=== PATIENT | male | born 1945 | race Caucasian/White ===

== ENCOUNTER → 2017-07-22 | Outpatient (CLI) | payer MEDICARE, OTHER ==
[~2017-07-22] MED LIST: AMMONIUM LACTA280 GM TOP; ASPIRIN EC81 M1; BACITRACIN28.4 G1; COLAZAL750 MG PO; DEPAKOTE ER250 MG PO; LOPRESSOR PO; MELATONIN3 M4 PO; PROZAC PO; SODIUM BICARBO650 MG PO; ZYRTEC10 M2 PO
--- NOTE | ~2017-07-22 | CR240 ---
[facility] A Service of [facility] RADIOLOGY TEXT RESULTS PATIENT: SVEN MONTILLA LOCATION: [facility] : 43 UNIT #: [id number] AGE: [address]: Michael Bales MD SEX: M ORDER DR: [id number] [facility] [address] [place], [place] [address] [id number] O MR#: [id number] Acc #: [id number] NAME: SVEN MONTILLA : 1945 SEX: M STUDY DATE/TIME: 07/22/2017 10:38 UNIT: [facility] ROOM: STUDY DESCRIPTION: CR Swallowing Fx W Cine or Vid Attending Physician: Michael Bales Sr., M.D. Referring Physician: Michael Bales Sr., M.D. Ordering Physician: Michael Bales Sr., M.D. Primary Care Physician: Michael Bales Sr., M.D. MEDICAL IMAGING REPORT This report is preliminary unless electronic signature is present EXAM Video swallowing study HISTORY Dysphasia. PROCEDURE Video swallowing study attempted but patient uncooperative and exam not completed. Total fluoroscopy time 0.1 minutes. IMPRESSION Incomplete exam, patient refused to cooperate. Dictated by... Israel Dove M.D. THIS IS AN ELECTRONICALLY VERIFIED REPORT Israel Dove M.D. at 07/23/2017 3:57 PM TEV/dwayne TD: 07/23/2017 10:30 JOB #: [id number] MEDICAL IMAGING REPORT Page 1 of 1 COPY
== END | disposition home or self-care (01) ==
LOC: CRAD 10:00
DX: R13.10 Dysphagia, unspecified (principal); Z53.8 Procedure and treatment not carried out for other reasons
CPT/HCPCS: 74230

== ENCOUNTER → 2017-07-29 | Outpatient (CLI) | payer MEDICARE, OTHER ==
--- NOTE | ~2017-07-29 | US77 ---
[facility] A Service of [facility] RADIOLOGY TEXT RESULTS PATIENT: SVEN MONTILLA LOCATION: [facility] : 43 UNIT #: [id number] AGE: [address]: Michael Bales MD SEX: M ORDER DR: [id number] [facility] [address] [place], [place] [address] [id number] O MR#: [id number] Acc #: [id number] NAME: SVEN MONTILLA : 1945 SEX: M STUDY DATE/TIME: 07/29/2017 13:46 UNIT: [facility] ROOM: STUDY DESCRIPTION: US Kidney Bilateral Complete Attending Physician: Michael Bales Sr., M.D. Referring Physician: Michael Bales Sr., M.D. Ordering Physician: Michael Bales Sr., M.D. Primary Care Physician: Michael Bales Sr., M.D. MEDICAL IMAGING REPORT This report is preliminary unless electronic signature is present EXAM Renal ultrasound. INDICATION Acute kidney injury. Question of chronic kidney disease. TECHNIQUE Lazo-scale and color Doppler sonographic images were obtained through the kidneys and bladder. FINDINGS This is an extremely technically limited examination. Right kidney appears unremarkable. Certainly I do not see any hydronephrosis. No definite solid or cystic renal masses are seen. Urinary bladder appears normal. Images of the left kidney are essentially nondiagnostic. However, no hydronephrosis is identified. IMPRESSION Extremely technically limited examination. No obvious hydronephrosis is seen. No gross abnormality identified. Dictated by... Denisse Keenan M.D. THIS IS AN ELECTRONICALLY VERIFIED REPORT Denisse Keenan M.D. at 07/30/2017 12:48 PM AFF/tmw TD: 07/29/2017 21:38 JOB #: [id number] [facility] A Service [facility] RADIOLOGY TEXT RESULTS PATIENT: SVEN MONTILLA LOCATION: [facility] : 43 UNIT #: [id number] AGE: [address]: Michael Bales MD SEX: M ORDER DR: MEDICAL IMAGING REPORT Page 1 of 1 COPY
== END | disposition home or self-care (01) ==
LOC: CGUS 12:45
DX: N17.9 Acute kidney failure, unspecified (principal)
CPT/HCPCS: 76770